=== PATIENT | female | born 1965 | race Hispanic/Latino ===

== ENCOUNTER 2021-08-18 20:58 | Emergency (ER) | payer BC ==
[~2021-08-18] VITALS: Ht 177.8 cm; Wt 127.0 kg
[2021-08-18] MEDS ORDERED: ACETAMINOPHEN 325 MG TAB PO STA (22:17)
[2021-08-18] MEDS ORDERED: ACETAMINOPHEN 325 MG TAB ONE (22:34)
[2021-08-18] MEDS ORDERED: AZITHROMYCIN250 MG PO (22:47)
[2021-08-18] MEDS ORDERED: PREDNISONE20 MG PO (22:47)
[2021-08-18] MEDS ORDERED: ALBUTEROL0.63 MG/3 NEB (22:54)
[2021-08-18 23:02] VITALS: BP 151/62
== END 2021-08-18 23:04 | disposition home or self-care (01) ==
LOC: ER 21:59
DX: U07.1 COVID-19 (principal); R07.9 Chest pain, unspecified; R06.02 Shortness of breath; R53.81 Other malaise
CPT/HCPCS: 71045; 99283

== ENCOUNTER 2021-08-19 17:46 | Emergency (ER) | payer BC ==
[~2021-08-19] VITALS: Ht 177.8 cm; Wt 127.0 kg
[~2021-08-19 17:46] MED LIST: ALBUTEROL0.63 MG/3 NEB; AZITHROMYCIN250 MG PO; PREDNISONE20 MG PO
[2021-08-19] MEDS ORDERED: INSULIN REGULAR, HUMAN 100 UNIT/1 ML IV ONE ×2 (18:15→20:45)
[2021-08-19] MEDS ORDERED: SODIUM CHLORIDE 0.9% 1000ML 1,000 ML IV ONE ×2 (18:15→19:15)
[2021-08-19 18:18] LABS: BASOPHILS % 0.1 % (0.0-1.0); HEMATOCRIT 40.3 % (34.2-44.1); HEMOGLOBIN 12.6 g/dL (12.0-16.0); LYMPHOCYTES # (AUTO) 1.3 (1.0-3.2); LYMPHOCYTES % 15.6 % (18.0-39.1); MEAN CORPUSCULAR HEMOGLOBIN 26.3 pg (28-32); MEAN CORPUSCULAR HGB CONC 31.3 g/dL (31-35); MEAN CORPUSCULAR VOLUME 84.1 fL (81-99); MONOCYTES # (AUTO) 0.3 (0.2-0.8); MONOCYTES % 3.1 % (4.4-11.3); NEUTROPHILS # (AUTO) 6.8 (2.1-6.9); PLATELET COUNT 349 x10e3/uL (140-360); RED BLOOD COUNT 4.79 x10e6/uL (3.6-5.1); RED CELL DISTRIBUTION WIDTH 14.2 % (11.7-14.4)
[2021-08-19 18:32] LABS: ALBUMIN 3.6 g/dL (3.5-5.0); ALBUMIN/GLOBULIN RATIO 0.6 (0.8-2.0); ANION GAP 18.9 mmol/L (8-16); CALCIUM 10.1 mg/dL (8.4-10.2); CREATININE, SERUM 0.97 mg/dL (0.57-1.11); POTASSIUM 4.9 mmol/L (3.5-5.1)
[2021-08-19] MEDS: ONDANSETRON HCL INJ 2MG/ML 2ML 2 MG/ML VIAL IV PRN ×2 (19:10→19:12)
[2021-08-19 20:30] LABS: ANION GAP 16.4 mmol/L (8-16); CALCIUM 9.9 mg/dL (8.4-10.2); POTASSIUM 5.4 mmol/L (3.5-5.1)
[2021-08-19] MEDS ORDERED: FUROSEMIDE INJ 10 MG/ML 4 ML VIAL IV ONE (20:45)
[2021-08-19 21:12] VITALS: BP 129/84
== END 2021-08-19 21:13 | disposition home or self-care (01) ==
LOC: ER 17:52
DX: E11.65 Type 2 diabetes mellitus with hyperglycemia (principal); U07.1 COVID-19; R53.81 Other malaise; Z88.6 Allergy status to analgesic agent
CPT/HCPCS: 36415; 80053; 82948; 85025; 99283; J1817; J1940; J2405; J7030; 80048

== ENCOUNTER 2021-08-21 21:31 | Emergency (ER) | payer BC ==
[~2021-08-21] VITALS: Ht 177.8 cm; Wt 127.0 kg
[2021-08-21] MEDS ORDERED: SODIUM CHLORIDE 0.9% 1000ML 1,000 ML IV STA ×2 (21:58→23:08)
[2021-08-21] MEDS ORDERED: INSULIN REGULAR, HUMAN 100 UNIT/1 ML IV ONE ×2 (22:00→23:15)
[2021-08-21 22:04] LABS: BASOPHILS % 0.1 % (0.0-1.0); HEMATOCRIT 37.6 % (34.2-44.1); HEMOGLOBIN 11.6 g/dL (12.0-16.0); LYMPHOCYTES # (AUTO) 2.7 (1.0-3.2); LYMPHOCYTES % 26.3 % (18.0-39.1); MEAN CORPUSCULAR HEMOGLOBIN 26.2 pg (28-32); MEAN CORPUSCULAR HGB CONC 30.9 g/dL (31-35); MEAN CORPUSCULAR VOLUME 85.1 fL (81-99); MONOCYTES # (AUTO) 0.6 (0.2-0.8); MONOCYTES % 5.8 % (4.4-11.3); NEUTROPHILS # (AUTO) 6.9 (2.1-6.9); NEUTROPHILS % 67.6 % (38.7-80.0); PLATELET COUNT 305 x10e3/uL (140-360); RED BLOOD COUNT 4.42 x10e6/uL (3.6-5.1); RED CELL DISTRIBUTION WIDTH 14.2 % (11.7-14.4)
[2021-08-21 22:26] LABS: ALBUMIN 3.6 g/dL (3.5-5.0); ALBUMIN/GLOBULIN RATIO 0.8 (0.8-2.0); ANION GAP 15.7 mmol/L (8-16); CALCIUM 8.9 mg/dL (8.4-10.2); CREATININE, SERUM 1.17 mg/dL (0.57-1.11); POTASSIUM 4.7 mmol/L (3.5-5.1)
== END 2021-08-22 00:53 | disposition home or self-care (01) ==
LOC: ER 21:48
DX: E11.65 Type 2 diabetes mellitus with hyperglycemia (principal); U07.1 COVID-19; Z88.6 Allergy status to analgesic agent
CPT/HCPCS: 36415; 80053; 82948; 85025; 99284; J1817; J7030

== ENCOUNTER 2024-01-17 05:24 | Emergency (ER) | payer BC ==
[~2024-01-17] VITALS: Ht 170.2 cm; Wt 103.9 kg
[~2024-01-17 05:24] MED LIST changes: +CEPHALEXIN500 MG PO; +Docusate Sodium PO; +JARDIANCE25 MG PO; +ONDANSETRON ODT4 MG PO; +PHENTERMINE H37.5 M1 PO
[2024-01-17 05:33] VITALS: PULSE 79; RESP 20; TEMP 98.2
[2024-01-17] MEDS: SODIUM CHLORIDE 0.9% 1000ML 1,000 ML IV STA (05:51)
[2024-01-17] MEDS: ONDANSETRON HCL INJ 2MG/ML 2ML 2 MG/ML VIAL IV STA (05:57)
[2024-01-17] MEDS: Morphine 4mg INJECTION 4 MG/ML INJ IV STA (05:58)
[2024-01-17 06:03] LABS: BASOPHILS % 0.5 % (0.0-1.0); EOSINOPHILS # (AUTO) 0.1 (0.0-0.4); EOSINOPHILS % 1.4 % (0.0-6.0); HEMATOCRIT 39.8 % (34.2-44.1); HEMOGLOBIN 12.1 g/dL (12.0-16.0); LYMPHOCYTES # (AUTO) 2.1 (1.0-3.2); LYMPHOCYTES % 38.2 % (18.0-39.1); MEAN CORPUSCULAR HEMOGLOBIN 26.4 pg (28-32); MEAN CORPUSCULAR HGB CONC 30.4 g/dL (31-35); MEAN CORPUSCULAR VOLUME 86.7 fL (81-99); MONOCYTES # (AUTO) 0.5 (0.2-0.8); MONOCYTES % 8.8 % (4.4-11.3); NEUTROPHILS # (AUTO) 2.8 (2.1-6.9); NEUTROPHILS % 50.9 % (38.7-80.0); PLATELET COUNT 248 x10e3/uL (140-360); RED BLOOD COUNT 4.59 x10e6/uL (3.6-5.1); WHITE BLOOD COUNT 5.58 x10e3/uL (4.8-10.8)
[2024-01-17 06:12] LABS: CLARITY,URINE SL CLOUDY (CLEAR); COLOR,URINE YELLOW (YELLOW); GLUCOSE, URINE 500 (NEGATIVE); LEUKOCYTE ESTERASE ,URINE NEGATIVE (NEGATIVE); NITRITE,URINE NEGATIVE (NEGATIVE); PH,URINE 6 (5 - 7); PROTEIN,URINE DIPSTICK NEGATIVE (NEGATIVE)
[2024-01-17 06:13] LABS: BILIRUBIN,URINE NEGATIVE (NEGATIVE); KETONES,URINE NEGATIVE (NEGATIVE); URINE UROBILINOGEN 1 mg/dL (0.2 - 1)
[2024-01-17 06:20] LABS: ALBUMIN 3.6 g/dL (3.5-5.0); ALBUMIN/GLOBULIN RATIO 0.9 (0.8-2.0); ANION GAP 12.8 mmol/L (8-16); BILIRUBIN,TOTAL 0.7 mg/dL (0.2-1.2); CALCIUM 9.3 mg/dL (8.4-10.2); CREATININE, SERUM 0.67 mg/dL (0.57-1.11); POTASSIUM 3.8 mmol/L (3.5-5.1); TOTAL PROTEIN 7.5 g/dL (6.5-8.1)
[2024-01-17] MEDS ORDERED: IOPAMIDOL 370 MG/ML 100 ML INFUS..BTL INJ ONE (06:28)
[2024-01-17 06:29] LABS: TROPONIN I 0.002 ng/mL (0-0.300)
[2024-01-17 06:44] LABS: BACTERIA,URINE MANY /HPF; EPITHELIAL CELLS,URINE RARE /LPF; RBC,URINE 0-5 /HPF (0-5)
[2024-01-17] MEDS ORDERED: CEFDINIR300 MG PO (07:14)
[2024-01-17 07:32] VITALS: BP 119/74; PULSE 67; RESP 16; O2SAT 100
== END 2024-01-17 07:34 | disposition home or self-care (01) ==
LOC: ER 05:32
DX: R10.11 Right upper quadrant pain (principal); N39.0 Urinary tract infection, site not specified; N20.0 Calculus of kidney; K59.00 Constipation, unspecified; I10 Essential (primary) hypertension; E11.9 Type 2 diabetes mellitus without complications; E78.5 Hyperlipidemia, unspecified
CPT/HCPCS: 36415; 74177; 80053; 81001; 82550; 83690; 84484; 85025; 93005; 99284; J2270; J2405; J7030; Q9967

== ENCOUNTER 2024-05-05 20:36 | Emergency (ER) | payer BC ==
[~2024-05-05] VITALS: Ht 170.2 cm; Wt 103.9 kg
[~2024-05-05 20:36] MED LIST changes: +CEFDINIR300 MG PO
[2024-05-05 20:40] VITALS: PULSE 84; RESP 18; TEMP 98.3
[2024-05-05 22:06] LABS: CLARITY,URINE CLEAR (CLEAR); COLOR,URINE YELLOW (YELLOW)
[2024-05-05 22:07] LABS: BILIRUBIN,URINE NEGATIVE (NEGATIVE); GLUCOSE, URINE 500 (NEGATIVE); KETONES,URINE NEGATIVE (NEGATIVE); LEUKOCYTE ESTERASE ,URINE NEGATIVE (NEGATIVE); NITRITE,URINE NEGATIVE (NEGATIVE); PH,URINE 6 (5 - 7); PROTEIN,URINE DIPSTICK NEGATIVE (NEGATIVE); URINE UROBILINOGEN 0.2 mg/dL (0.2 - 1)
[2024-05-05 22:24] LABS: CORONAVIRUS COVID-19 AG NEGATIVE (NEGATIVE); INFLUENZA A AG POSITIVE (NEGATIVE); INFLUENZA B AG NEGATIVE (NEGATIVE)
[2024-05-05 22:28] LABS: BACTERIA,URINE MANY /HPF; EPITHELIAL CELLS,URINE MANY /LPF; RBC,URINE 0-5 /HPF (0-5)
[2024-05-05] MEDS ORDERED: MACROBID 100 M100 MG PO (22:33)
[2024-05-05] MEDS ORDERED: TAMIFLU75 MG PO (22:33)
[2024-05-05] MEDS ORDERED: ONDANSETRON ODT4 MG SL (22:33)
[2024-05-06 00:24] VITALS: BP 121/65; PULSE 65; RESP 16; TEMP 98.6; O2SAT 98
== END 2024-05-05 22:39 | disposition home or self-care (01) ==
LOC: ER 21:21
DX: R05.9 Cough, unspecified (principal); J10.1 Influenza due to other identified influenza virus with other respiratory manifestations; N39.0 Urinary tract infection, site not specified; R10.30 Lower abdominal pain, unspecified; I10 Essential (primary) hypertension; E11.9 Type 2 diabetes mellitus without complications; E78.5 Hyperlipidemia, unspecified; Z11.52 Encounter for screening for COVID-19
CPT/HCPCS: 71045; 81001; 99284

== ENCOUNTER 2024-05-28 05:45 | Emergency (ER) | payer BC ==
[~2024-05-28] VITALS: Ht 170.2 cm; Wt 99.8 kg
[~2024-05-28 05:45] MED LIST changes: +MACROBID 100 M100 MG PO; +ONDANSETRON ODT4 MG SL; +TAMIFLU75 MG PO
[2024-05-28 06:03] VITALS: PULSE 88; RESP 20; TEMP 99.3; O2SAT 98
== END 2024-05-28 06:20 | disposition home or self-care (01) ==
LOC: ER 05:58
DX: R50.9 Fever, unspecified (principal); J03.90 Acute tonsillitis, unspecified; I10 Essential (primary) hypertension; E11.9 Type 2 diabetes mellitus without complications; E78.5 Hyperlipidemia, unspecified
CPT/HCPCS: 99282